=== PATIENT | male | born 2005 | race Caucasian/White ===

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

== ENCOUNTER 2023-01-19 23:45 | Emergency (ER) | payer OTHER ==
[2023-01-19 23:59] VITALS: BP 130/67; PULSE 131; RESP 16; TEMP 102.8; BMI 11.6
[2023-01-20] MEDS ORDERED: ACETAMINOPHEN 500 MG TABLET (FP) PO ONE (00:32)
[2023-01-20] MEDS ORDERED: ACETAMINOPHEN 500 MG TABLET (FP) ONE (00:33)
== END 2023-01-20 00:45 | disposition home or self-care (01) ==
LOC: FER 23:45
DX: J02.9 Acute pharyngitis, unspecified (principal); R19.7 Diarrhea, unspecified; R53.83 Other fatigue
CPT/HCPCS: 0241U-QW; 87651; 99283-25